=== PATIENT | female | born 1970 | race Caucasian/White ===

== ENCOUNTER 2020-03-14 08:33 | Emergency (ER) | payer SELFPAY ==
[2020-03-14 08:47] VITALS: BP 131/96; PULSE 71; RESP 17; TEMP 37; O2SAT 100; BMI 23.9
--- NOTE | 2020-03-14 08:55 | W.ED.SKABFB ---
HPI - Skin/Abscess/Foreign Bdy General: Chief complaint: Skin/Abscess/Foreign Body Stated complaint: RASH ON BREAST, PAINFUL Time Seen by Provider: 03/14/20 08:38 Source: patient Mode of arrival: ambulatory Limitations: no limitations History of Present Illness: HPI narrative: Patient is a 49-year-old female who presents to ED today with complaint of a rash to her breasts that she has noticed over the past 2 to 3 days. She describes a foul odor coming from the rash. She states the rash is pruritic and burning in nature. She has no other complaints at this time. complaint: rash Onset (ago): day(s) Tetanus up to date: yes Location: chest (breasts) Severity: mild Quality: burning and pruritic Pain Consistency: constant Relieving factors: none Exacerbating factors: none Context: none Associated symptoms: Reports no associated symptoms; Deny chills, fever(s), nausea or vomiting Treatments prior to arrival: none Review of Systems Const: Denies: fever or chills ENMT: Denies: throat pain, enlarged tonsils, painful swallowing or nasal congestion Card: Denies: chest pain Resp: Denies: shortness of breath GI: Denies: abdominal pain, nausea or vomiting Skin/Breast: Reports: rash Neuro: Denies: numbness in extremities, weakness in extremities or changes in sensation PFS ED PFSH: Social History Smoking and tobacco status: current every day smoker Physical Exam Const: COMMON NORMALS: no apparent distress, average body habitus, oriented x3, no limitations, healthy appearing, alert and well nourished Resp: COMMON NORMALS: normal respiratory effort and clear to auscultation bilaterally AUSCULTATION: clear to auscultation bilaterally Cardio: COMMON NORMALS: regular rate and regular rhythm RATE: regular rate RHYTHM: regular rhythm Neuro: COMMON NORMALS: oriented x3 SENSORIUM/ORIENTATION: Yes alert Skin: NARRATIVE SKIN EXAM: Patient has what appears to be a candidal rash to bilateral medial aspects of her breasts; rash seems to mirror each other most likely from the breast tissue touching while wearing a bra; has additional erythema/rash to left breast fold; no drainage or foul smell noted; no maceration Course Vital Signs: Vital signs: Vital Signs Temperature 98.6 F 03/14/20 08:47 Pulse Rate 71 03/14/20 08:47 Respiratory Rate 17 03/14/20 08:47 Blood Pressure 131/96 03/14/20 08:47 Pulse Oximetry 100 03/14/20 08:47 MDM - Skin/Abscess/Foreign Bdy MDM Narrative: Medical decision making narrative: Discussed hygiene for rash at home including keeping areas clean and dry. She can apply a cotton material or washcloth in her bra in between the breasts so they are not touching/chafing. Can apply barrier creams such as zinc oxide and we will place her on ketoconazole that she may use twice daily over the next 2 to 3 weeks. Discharge Plan Discharge Patient Disposition: Home, Self-Care Clinical Impression: Candidiasis of breast Condition: Stable Prescriptions: New ketoconazole 2 % cream 1 applic TOPICAL BID Qty: 30 RF: 0 Discharge Orders: Discharge Order (Routine); Ordered 03/14/20 Ordered By: Allie Redman Referrals: Mahi Myers MD [Primary Care Provider] - Discharge Diet: Usual diet Discharge Activity: Resume usual activity Activity Restrictions/Additional Instructions: As discussed keep area dry and moisture free. Allow area to air dry as much as possible. You may use a washcloth or other cotton material in your bra to help with moisture control/sweating. You may apply moisture barrier creams such as a baby butt paste/zinc oxide in addition to the antifungal medication prescribed to you today. Follow-up with primary care in 2 weeks for continued rash. Coding Level of Care Code ED Unit Assistant for Tayler Negro
== END 2020-03-14 09:03 | disposition home or self-care (01) ==
LOC: ER 03-15 00:56
PROVIDERS: Emergency Provider Physician Assistant; PCP Family Medicine
DX: B37.2 Candidiasis of skin and nail (principal); F17.210 Nicotine dependence, cigarettes, uncomplicated
CPT/HCPCS: 12345; 99281; 99282

== ENCOUNTER 2021-08-23 15:58 | Emergency (ER) | payer MEDICAID, SELFPAY ==
--- NOTE | 2021-08-23 16:23 | ECG_ITS ---
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 Measurements Intervals Burney Rate: 74 P: 53 NM: 152 QRS: 18 QRSD: 85 T: 57 QT: 380 QTc: 424 Interpretive Statements SINUS RHYTHM POSSIBLE RIGHT VENTRICULAR CONDUCTION DELAY [RSR (QR) IN V1/V2] MINIMAL ST DEPRESSION [0.025+ mV ST DEPRESSION] No previous ECG available for comparison Electronically Signed On 08-23-2021 21:00:16 CDT by Sadia Amaral M.D. [id number] f
[2021-08-23 16:34] VITALS: BP 165/84; PULSE 80; RESP 18; TEMP 37; O2SAT 100; BMI 23.6
[2021-08-23 17:07] VITALS: BP 147/111; PULSE 74; O2SAT 98
--- NOTE | 2021-08-23 17:07 | XRR_ITS ---
PROCEDURE INFORMATION: Exam: XR Chest Exam date and time: 08/23/2021 5:07 PM Age: 51 years old Clinical indication: Pain; Angina pectoris; Additional info: Chest pain TECHNIQUE: Imaging protocol: XR of the chest. Views: 1 view. Total images: 1 COMPARISON: CT abdomen pelvis w con* [id number] 01/14/2016 8:52 AM FINDINGS: Lungs: Unremarkable. No consolidation. Pleural spaces: Unremarkable. No pleural effusion. No pneumothorax. Heart/Mediastinum: Unremarkable. No cardiomegaly. Bones/joints: Unremarkable. XR/XR chest 1V portable [id number] IMPRESSION: No acute findings. Radiation Dose CTDIVOL = (mGy): DLP = (mGy-cm)
--- NOTE | 2021-08-23 17:08 | W.ED.CHESTPA ---
Documented by User: Osbaldo Aceves 08/23/21 17:42 HPI - Chest Pain General: Chief Complaint: Chest Pain Stated Complaint: CHEST PAINS/JAW PAIN/NAUSEA Time Seen by Provider: 08/23/21 16:53 Source: patient, family and old records reviewed Mode of arrival: ambulatory Limitations: no limitations History of Present Illness: HPI narrative: 51-year-old for episodes of bilateral jaw pressure which she is also been having her heart skipping a beat palpitation. Patient is reports has been worked up for heart previously with a last 5 years is come back unremarkable. She reports however this episode while moving some heavy groceries she developed bilateral jaw pain. Patient does not report any known cardiac surgeries reports no prior history of any car heart or lung issues besides arrhythmia. She is on no medications for this however that the pain concerned her in which she presented to the ER for further assessment patient currently reports she is chest pain-free and jaw pain-free. MD complaint: chest pain and chest discomfort Onset (ago): hour(s) (2) Timing of current episode: episodic and now resolved Prior episodes: Yes Onset: during rest, during exertion and after eating Pain location: left chest Quality: tightness and aching Risk Factors: Coronary artery disease risk factors: smoking history and hypertension Review of Systems General: Reports: 10 or more systems reviewed and unremarkable except in HPI and below Card: Reports: chest pain [facility] ED PFSH: Social History Smoking and tobacco status: current every day smoker Course Vital Signs: Vital signs: Vital Signs Temperature 98.6 F 08/23/21 16:34 Pulse Rate 69 08/23/21 19:31 Respiratory Rate 18 08/23/21 19:31 Blood Pressure 133/85 08/23/21 19:31 Pulse Oximetry 100 08/23/21 19:31 MDM - Chest Pain MDM Narrative: Medical decision making narrative: Patient symptom condition basic cardiac lives with him the patient will continue to follow currently she is asymptomatic anticipate probable discharge home pending her lab work and enzymes. Lab Data: Labs: Lab Results 08/23/21 08/23/21 08/23/21 17:17 17:17 17:17 WBC 8.7 10^3/uL 10^3/ uL (4.0-10.0) RBC 4.15 10^6/uL 10^6 /uL (4.1-5.3) Hgb 14.6 g/dL g/dL (11.5-15.3) Hct 43.4 % % (37.0-47.0) MCV 104.6 fl H fl (81-99) MCH 35.2 pg H pg (28.0-34.0) MCHC 33.6 g/dL g/dL (30.0-36.0) RDW 14.6 % % (12.1-15.1) Plt Count 258 10^3/cmm 10^3 /cmm (130-400) MPV 11.3 fL H fL (7.4-10.4) Neut % (Auto) 64.3 % % Lymph % (Auto) 29.7 % % Alexander % (Auto) 4.9 % % Eos % (Auto) 0.7 % % Baso % (Auto) 0.2 % % Neut # (Auto) 5.61 10^3/uL 10^3 /uL (1.8-7.7) Lymph # (Auto) 2.6 10^3/uL 10^3/ uL (0.8-4.8) Alexander # (Auto) 0.4 10^3/uL 10^3/ uL (0.2-0.9) Eos # (Auto) 0.1 10^3/uL 10^3/ uL (0.0-0.8) Baso # (Auto) 0.0 10^3/uL 10^3/ uL (0.0-0.1) Nucleated RBC % (a uto) 0 % % Nucleated RBCs # 0.0 /100WBC /100W BC Sodium 136 mmol/L mmol/L (136-145) Potassium 3.6 mmol/L mmol/L (3.5-5.1) Chloride 98 mmol/L mmol/L (98-107) Carbon Dioxide 25 mmol/L mmol/L (22-29) Anion Gap 16.6 (5-19) BUN 11 mg/dL mg/dL (6-20) Creatinine 0.6 mg/dL mg/dL (0.5-0.9) GFR Calculation 105.4 mL/min mL/m in (90-130) Glucose 90 mg/dL mg/dL (65-115) Calculated Osmolal ity 281 mOsm/kg L mOs m/kg (285-295) Calcium 9.7 mg/dL mg/dL (8.5-10.5) Total Bilirubin 0.5 mg/dL mg/dL (0.15-1.2) AST 16 U/L U/L (0-32) ALT 16 U/L U/L (0-33) Alkaline Phosphata se 102 IU/L IU/L (35-105) Troponin T Baselin e 24 ng/L H ng/L (0-10) Troponin T 120 Min [place] Troponin T NT-Pro-B Natriuret Pep 46 pg/mL pg/mL (0-125) Total Protein 8.1 g/dL g/dL (6.6-8.7) Albumin 4.6 g/dL g/dL (3.5-5.2) Globulin 3.5 g/dL g/dL (1.3-4.6) Urine Color Urine Appearance Urine pH Ur Specific Gravit y Urine Protein Urine Glucose (UA) Urine Ketones Urine Blood Urine Nitrate Urine Bilirubin Urine Urobilinogen Ur Leukocyte Melanie ase Urine RBC Urine WBC Ur Squamous Epith Cells Amorphous Sediment Urine Bacteria Urine Mucus Urine Opiates Scre en Ur Barbiturates Sc reen Ur Phencyclidine S crn Ur Amphetamines Sc reen U Benzodiazepines Scrn Urine Cocaine Scre en U Marijuana (THC) Screen 08/23/21 08/23/21 08/23/21 17:44 17:44 19:15 WBC RBC Hgb Hct MCV MCH MCHC RDW Plt Count MPV Neut % (Auto) Lymph % (Auto) Alexander % (Auto) Eos % (Auto) Baso % (Auto) Neut # (Auto) Lymph # (Auto) Alexander # (Auto) Eos # (Auto) Baso # (Auto) Nucleated RBC % (a uto) Nucleated RBCs # Sodium Potassium Chloride Carbon Dioxide Anion Gap BUN Creatinine GFR Calculation Glucose Calculated Osmolal ity Calcium Total Bilirubin AST ALT Alkaline Phosphata se Troponin T Baselin e Troponin T 120 Min [place] 31.50 ng/L H ng/L (0-10) [place] Troponin T 7.50 ABS# ABS# (0-10) NT-Pro-B Natriuret Pep Total Protein Albumin Globulin Urine Color Yellow (Yellow) Urine Appearance Hazy A (CLEAR) Urine pH 5 (5-7) Ur Specific Gravit y 1.020 (1.005-1.030) Urine Protein Neg (Negative) Urine Glucose (UA) Norm (Normal) Urine Ketones 1+ H (Negative) Urine Blood Trace H (Negative) Urine Nitrate Negative (Negative) Urine Bilirubin 1+ H (Negative) Urine Urobilinogen 4 mg/dL H mg/dL (Negative) Ur Leukocyte Melanie ase Negative (Negative) Urine RBC 0-4 /hpf H /hpf (0-2) Urine WBC 0-4 /hpf H /hpf (0-5) Ur Squamous Epith Cells 15-25 /hpf H /hpf (0-5) Amorphous Sediment Not Reportable Urine Bacteria 1+ /hpf H /hpf (NONE) Urine Mucus 2+ /hpf /hpf Urine Opiates Scre en Negative ng/mL ng /mL (Negative) Ur Barbiturates Sc reen Negative ng/mL ng /mL (Negative) Ur Phencyclidine S crn Negative ng/mL ng /mL (Negative) Ur Amphetamines Sc reen Negative ng/mL ng /mL (Negative) U Benzodiazepines Scrn Negative ng/mL ng /mL (Negative) Urine Cocaine Scre en Negative ng/mL ng /mL (Negative) U Marijuana (THC) Screen Positive ng/mL H ng/mL (Negative) Discharge Plan Discharge Patient Disposition: Home Clinical Impression: Chest pain Qualifiers: Chest pain type: unspecified Qualified Code(s): R07.9 - Chest pain, unspecified Condition: Stable Prescriptions: No Action No Known Home Medications RF: 0 Discharge Orders: Discharge ED (Routine); Ordered 08/23/21 Ordered By: Felipe Dumas Referrals: Mahi Myers MD [Primary Care Provider] - 1-3 days Discharge Diet: Advance as tolerated Discharge Activity: Resume usual activity Patient Instructions: Chest Pain (ED) Coding Level of Care Code ED Proofer Prepress for Chg Fwd Documented by User: Felipe Dumas MD 08/23/21 20:10 HPI - Chest Pain General: Chief Complaint: Chest Pain Stated Complaint: CHEST PAINS/JAW PAIN/NAUSEA Time Seen by Provider: 08/23/21 16:53 PFSH ED PFSH: Social History Smoking and tobacco status: current every day smoker Physical Exam Const: COMMON NORMALS: no acute distress, patient oriented x3 and healthy appearing HENMT: COMMON NORMALS: normocephalic and atraumatic HEAD & SCALP: normocephalic and atraumatic Eye: COMMON NORMALS: Equal, round and reactive pupils present and EOMs intact bilaterally PUPIL: Yes Equal, round and reactive pupils present Neck/C-Spine: COMMON NORMALS: full ROM and supple Chest: COMMONS NORMALS: normal inspection of the chest and normal palpation of entire chest wall Resp: COMMON NORMALS: normal respiratory effort, No retractions, No use of accessory muscles and clear to auscultation bilaterally AUSCULTATION: clear to auscultation bilaterally Cardio: COMMON NORMALS: regular rate, regular rhythm and No murmurs present (Cardio) RATE: regular rate RHYTHM: regular rhythm GI: COMMON NORMALS: Normal to inspection, nondistended, normoactive bowel sounds present, Soft to palpation, non-tender and no masses PALPATION: Yes Soft to palpation Extremity: COMMON NORMALS: normal to inspection and full ROM Neuro: COMMON NORMALS: patient oriented x3, moves all extremities and no focal motor deficits Psych: COMMON NORMALS: mental status grossly normal, Normal thought process present and cooperative THOUGHT PROCESS: Normal thought process present Skin: COMMON NORMALS: no rashes or lesions noted and no wounds GENERAL SKIN EXAM: no rashes or lesions noted Course Vital Signs: Vital signs: Vital Signs Temperature 98.6 F 08/23/21 16:34 Pulse Rate 69 08/23/21 19:31 Respiratory Rate 18 08/23/21 19:31 Blood Pressure 133/85 08/23/21 19:31 Pulse Oximetry 100 08/23/21 19:31 MDM - Chest Pain MDM Narrative: Medical decision making narrative: Patient presents here with chest pain. Her pain is since resolved EKG and troponins here are negative. She is to follow-up with PCP and is return if worsening. She has no signs of pulmonary embolism or aortic dissection. She understands agrees to plan. Lab Data: Labs: Lab Results 08/23/21 08/23/21 08/23/21 17:17 17:17 17:17 WBC 8.7 10^3/uL 10^3/ uL (4.0-10.0) RBC 4.15 10^6/uL 10^6 /uL (4.1-5.3) Hgb 14.6 g/dL g/dL (11.5-15.3) Hct 43.4 % % (37.0-47.0) MCV 104.6 fl H fl (81-99) MCH 35.2 pg H pg (28.0-34.0) MCHC 33.6 g/dL g/dL (30.0-36.0) RDW 14.6 % % (12.1-15.1) Plt Count 258 10^3/cmm 10^3 /cmm (130-400) MPV 11.3 fL H fL (7.4-10.4) Neut % (Auto) 64.3 % % Lymph % (Auto) 29.7 % % Alexander % (Auto) 4.9 % % Eos % (Auto) 0.7 % % Baso % (Auto) 0.2 % % Neut # (Auto) 5.61 10^3/uL 10^3 /uL (1.8-7.7) Lymph # (Auto) 2.6 10^3/uL 10^3/ uL (0.8-4.8) Alexander # (Auto) 0.4 10^3/uL 10^3/ uL (0.2-0.9) Eos # (Auto) 0.1 10^3/uL 10^3/ uL (0.0-0.8) Baso # (Auto) 0.0 10^3/uL 10^3/ uL (0.0-0.1) Nucleated RBC % (a uto) 0 % % Nucleated RBCs # 0.0 /100WBC /100W BC Sodium 136 mmol/L mmol/L (136-145) Potassium 3.6 mmol/L mmol/L (3.5-5.1) Chloride 98 mmol/L mmol/L (98-107) Carbon Dioxide 25 mmol/L mmol/L (22-29) Anion Gap 16.6 (5-19) BUN 11 mg/dL mg/dL (6-20) Creatinine 0.6 mg/dL mg/dL (0.5-0.9) GFR Calculation 105.4 mL/min mL/m in (90-130) Glucose 90 mg/dL mg/dL (65-115) Calculated Osmolal ity 281 mOsm/kg L mOs m/kg (285-295) Calcium 9.7 mg/dL mg/dL (8.5-10.5) Total Bilirubin 0.5 mg/dL mg/dL (0.15-1.2) AST 16 U/L U/L (0-32) ALT 16 U/L U/L (0-33) Alkaline Phosphata se 102 IU/L IU/L (35-105) Troponin T Baselin e 24 ng/L H ng/L (0-10) Troponin T 120 Min [place] Troponin T NT-Pro-B Natriuret Pep 46 pg/mL pg/mL (0-125) Total Protein 8.1 g/dL g/dL (6.6-8.7) Albumin 4.6 g/dL g/dL (3.5-5.2) Globulin 3.5 g/dL g/dL (1.3-4.6) Urine Color Urine Appearance Urine pH Ur Specific Gravit y Urine Protein Urine Glucose (UA) Urine Ketones Urine Blood Urine Nitrate Urine Bilirubin Urine Urobilinogen Ur Leukocyte Melanie ase Urine RBC Urine WBC Ur Squamous Epith Cells Amorphous Sediment Urine Bacteria Urine Mucus Urine Opiates Scre en Ur Barbiturates Sc reen Ur Phencyclidine S crn Ur Amphetamines Sc reen U Benzodiazepines Scrn Urine Cocaine Scre en U Marijuana (THC) Screen 08/23/21 08/23/21 08/23/21 17:44 17:44 19:15 WBC RBC Hgb Hct MCV MCH MCHC RDW Plt Count MPV Neut % (Auto) Lymph % (Auto) Alexander % (Auto) Eos % (Auto) Baso % (Auto) Neut # (Auto) Lymph # (Auto) Alexander # (Auto) Eos # (Auto) Baso # (Auto) Nucleated RBC % (a uto) Nucleated RBCs # Sodium Potassium Chloride Carbon Dioxide Anion Gap BUN Creatinine GFR Calculation Glucose Calculated Osmolal ity Calcium Total Bilirubin AST ALT Alkaline Phosphata se Troponin T Baselin e Troponin T 120 Min [place] 31.50 ng/L H ng/L (0-10) [place] Troponin T 7.50 ABS# ABS# (0-10) NT-Pro-B Natriuret Pep Total Protein Albumin Globulin Urine Color Yellow (Yellow) Urine Appearance Hazy A (CLEAR) Urine pH 5 (5-7) Ur Specific Gravit y 1.020 (1.005-1.030) Urine Protein Neg (Negative) Urine Glucose (UA) Norm (Normal) Urine Ketones 1+ H (Negative) Urine Blood Trace H (Negative) Urine Nitrate Negative (Negative) Urine Bilirubin 1+ H (Negative) Urine Urobilinogen 4 mg/dL H mg/dL (Negative) Ur Leukocyte Melanie ase Negative (Negative) Urine RBC 0-4 /hpf H /hpf (0-2) Urine WBC 0-4 /hpf H /hpf (0-5) Ur Squamous Epith Cells 15-25 /hpf H /hpf (0-5) Amorphous Sediment Not Reportable Urine Bacteria 1+ /hpf H /hpf (NONE) Urine Mucus 2+ /hpf /hpf Urine Opiates Scre en Negative ng/mL ng /mL (Negative) Ur Barbiturates Sc reen Negative ng/mL ng /mL (Negative) Ur Phencyclidine S crn Negative ng/mL ng /mL (Negative) Ur Amphetamines Sc reen Negative ng/mL ng /mL (Negative) U Benzodiazepines Scrn Negative ng/mL ng /mL (Negative) Urine Cocaine Scre en Negative ng/mL ng /mL (Negative) U Marijuana (THC) Screen Positive ng/mL H ng/mL (Negative) Discharge Plan Discharge Patient Disposition: Home Clinical Impression: Chest pain Qualifiers: Chest pain type: unspecified Qualified Code(s): R07.9 - Chest pain, unspecified Condition: Stable Prescriptions: No Action No Known Home Medications RF: 0 Discharge Orders: Discharge ED (Routine); Ordered 08/23/21 Ordered By: Felipe Dumas Referrals: Mahi Myers MD [Primary Care Provider] - 1-3 days Discharge Diet: Advance as tolerated Discharge Activity: Resume usual activity Patient Instructions: Chest Pain (ED) Coding Level of Care Code ED Proofer Prepress for Tayler Negro
[2021-08-23 17:43] LABS: Basophils % 0.2 %; Eosinophils # 0.1 10^3/uL (0.0-0.8); Eosinophils % 0.7 %; Hematocrit 43.4 % (37.0-47.0); Hemoglobin 14.6 g/dL (11.5-15.3); Lymphocytes # 2.6 10^3/uL (0.8-4.8); Lymphocytes % 29.7 %; Mean Corpuscular HGB Conc 33.6 g/dL (30.0-36.0); Mean Corpuscular Hemoglobin 35.2 pg (28.0-34.0); Mean Corpuscular Volume 104.6 fl (81-99); Mean Platelet Volume 11.3 fL (7.4-10.4); Monocytes # 0.4 10^3/uL (0.2-0.9); Monocytes % 4.9 %; Neutrophils # 5.61 10^3/uL (1.8-7.7); Neutrophils % 64.3 %; Nucleated Red Blood Cells % 0 %; Platelet Count 258 10^3/cmm (130-400); Red Blood Count 4.15 10^6/uL (4.1-5.3); Red Cell Distribution Width 14.6 % (12.1-15.1); White Blood Count 8.7 10^3/uL (4.0-10.0)
[2021-08-23] MEDS: sodium chloride 0.9% 500 ML 999 ML IV (17:46)
[2021-08-23 18:11] LABS: Troponin(5th) Baseline 24 ng/L (0-10)
[2021-08-23 18:18] LABS: Alanine Aminotransferase 16 U/L (0-33); Albumin Level 4.6 g/dL (3.5-5.2); Alkaline Phosphatase 102 IU/L (35-105); Anion Gap 16.6 (5-19); Aspartate Amino Transferase 16 U/L (0-32); Blood Urea Nitrogen 11 mg/dL (6-20); Calcium 9.7 mg/dL (8.5-10.5); Carbon Dioxide 25 mmol/L (22-29); Chloride 98 mmol/L (98-107); Globulin 3.5 g/dL (1.3-4.6); Glomerular Filtration Rate 105.4 mL/min (90-130); Glucose 90 mg/dL (65-115); NT Pro B Type Natriuretic Pept 46 pg/mL (0-125); Osmolality Calculated 281 mOsm/kg (285-295); Potassium 3.6 mmol/L (3.5-5.1); Sodium 136 mmol/L (136-145); Total Bilirubin 0.5 mg/dL (0.15-1.2); Total Protein 8.1 g/dL (6.6-8.7)
[2021-08-23 18:19] LABS: Bilirubin Urine 1+ (Negative); Blood Urine Trace (Negative); Glucose Urine UA Norm (Normal); Ketones Urine 1+ (Negative); Nitrate Urine Negative (Negative); Protein Urine Neg (Negative); Urine Appearance Hazy (CLEAR); Urine Color Yellow (Yellow); Urobilinogen Urine 4 mg/dL (Negative); pH Urine 5 (5-7)
[2021-08-23 18:20] LABS: Add Urine Microscopic? YES; Leukocyte Esterase Urine Negative (Negative)
[2021-08-23 18:23] LABS: RBC Urine 0-4 /hpf (0-2); Squamous Epithelial Cell Urine 15-25 /hpf (0-5); WBC Urine 0-4 /hpf (0-5)
[2021-08-23 18:24] LABS: Add Urine Culture? No; Bacteria Urine 1+ /hpf; Mucus Urine 2+ /hpf
[2021-08-23 18:28] LABS: Amphetamines Screen Urine Negative (Negative); Barbiturates Screen Urine Negative (Negative); Benzodiazepines Screen Urine Negative (Negative); Cocaine Screen Urine Negative (Negative); Opiate Screen Urine Negative (Negative); PCP Screen Urine Negative (Negative); THC Screen Urine Positive (Negative)
[2021-08-23 19:31] VITALS: BP 133/85; PULSE 69; RESP 18; O2SAT 100
[2021-08-23 20:16] VITALS: BP 133/85; PULSE 69; RESP 18; O2SAT 100
== END 2021-08-23 20:10 | disposition home or self-care (01) ==
PROVIDERS: Emergency Medicine; Nurse Practitioner Family; Emergency Provider Emergency Medicine; PCP Family Medicine
DX: R07.9 Chest pain, unspecified (principal); F17.210 Nicotine dependence, cigarettes, uncomplicated
CPT/HCPCS: 71045; 80053; 80306; 81001; 83880; 84484; 85025; 93005; 99283; J7040

== ENCOUNTER 2021-10-28 11:37 | Outpatient (CLI) | payer MEDICAID, SELFPAY ==
[2021-10-28 11:53] VITALS: BMI 22.6
--- NOTE | 2021-10-28 12:15 | ECG_ITS ---
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 Interpretive Statements NAME OF STUDY: TREADMILL STRESS TEST INDICATION: [Chest Pain, ] EXERCISE DATA: The patient was exercised by Greg protocol. Baseline heart rate was 70 beats per minute. Baseline blood pressure was 79 millimeters of mercury. Target heart rate was 143 beats per minute. Maximum heart rate achieved was 149, which was 104% of the target heart rate. Maximum blood pressure was 142/51 millimeters of mercury. Total exercise time was 9 minutes 27 seconds. Maximum METs achieved was 13.5, maximum VO2 was 47.3. The reason for ending the test was completion of protocol. The patient complained of shortness of breath during the stress test, which then resolved at the end of the test. ELECTROCARDIOGRAM: BASELINE: Showed sinus rhythm, incomplete right bundle branch block,, no significant ST-T changes at the baseline noted. [] EXERCISE: At the peak exercise level, [] No significant ST-T changes suggestive of ischemia noted. [] RECOVERY: During the recovery period, heart rate dropped appropriately. No significant ST-T changes in the recovery suggestive of ischemia noted. In recovery phase patient had frequent PVCs in bigeminal pattern. [] CONCLUSION: 1. Exercise capacity excellent. 2. Heart rate response was appropriate 3. Blood pressure response was appropriate 4. Symptoms not suggestive of ischemia. 5. Stress test negative for ischemia Electronically Signed On 10-31-2021 13:14:06 INDUSTRIAL PHARMACIST by Jerman Ramos M.D. [id number]
[2021-10-28 12:30] VITALS: BP 108/94; PULSE 91
== END 2021-10-28 11:38 | disposition home or self-care (01) ==
LOC: CDL 11:40
PROVIDERS: PCP Family Medicine; Visit Provider Family Medicine
DX: R07.9 Chest pain, unspecified (principal); R06.02 Shortness of breath
CPT/HCPCS: 93017

== ENCOUNTER → 2022-10-04 12:11 | Outpatient (BNVA) | payer MEDICAID, SELFPAY | PROVIDERS: PCP Family Medicine; Visit Provider Clinical Nurse Specialist Adult Health | DX: B34.9 Viral infection, unspecified (principal); J10.1 Influenza due to other identified influenza virus with other respiratory manifestations; Z12.11 Encounter for screening for malignant neoplasm of colon | CPT/HCPCS: 87400; 87426 ==

== ENCOUNTER 2022-10-14 06:50 | Outpatient (CLI) | payer MEDICAID, SELFPAY ==
--- NOTE | 2022-10-14 | US_ITS ---
WS: [id number] Complete ABDOMINAL ULTRASOUND HISTORY: left upper quadrant and flank pain COMPARISON: 04/24/2012 Liver: 14.2 cm in length. Liver is normal size and echogenicity with no mass or intrahepatic dilatati on. Portal Vein: Abnormal flow but this is probably due to the orientation of the sample volume to the po rtal vein and not accurate. Nondiagnostic evaluation of the portal vein. Gallbladder: Normally distended with no gallstones, wall thickening or pericholecystic fluid. Pancreas: Normal size and echogenicity. CBD: 0.4 cm. Right kidney: 9.2 cm x 4.6 cm x 3.9 cm. No mass, cortical thickening or hydronephrosis. Left kidney: 9.8 cm x 4.5 cm x 5.0 cm. No mass, cortical thickening or hydronephrosis. Spleen: Normal size and echogenicity. Abdominal aorta and IVC are within normal limits. No ascites. US/US abdomen complete* [id number] IMPRESSION: Normal complete abdomen ultrasound.
== END 2022-10-14 06:51 | disposition home or self-care (01) ==
LOC: RAD 06:52
PROVIDERS: PCP Family Medicine; Visit Provider Family Medicine
DX: R10.12 Left upper quadrant pain (principal); Z87.442 Personal history of urinary calculi
CPT/HCPCS: 76700

== ENCOUNTER 2022-12-09 06:37 | Emergency (ER) | payer MEDICAID, SELFPAY ==
[2022-12-09 06:41] VITALS: BP 116/63; PULSE 79; RESP 18; TEMP 36.5; O2SAT 99; BMI 21.3
[2022-12-09 06:45] VITALS: BP 122/78; RESP 14
--- NOTE | 2022-12-09 06:54 | XR_ITS ---
WS: [id number] Left foot, 3 views, 12/09/2022 Clinical Data: pain Comparison: None. Findings: No fractures or dislocations are seen. No bone destruction or erosion is noted. The joint spaces and soft tissues are normal. XR/XR foot LT min 3V* [id number] Impression: Negative left foot.
--- NOTE | 2022-12-09 06:54 | XR_ITS ---
WS: [id number] Right foot, 3 views, 12/09/2022 Clinical Data: pain Comparison: None. Findings: No fractures or dislocations are seen. No bone destruction or erosion is noted. The joint spaces and soft tissues are normal. XR/XR foot RT min 3V* [id number] Impression: Negative right foot.
--- NOTE | 2022-12-09 06:56 | ED_ITS ---
HPI - Extremity Problem General: Chief complaint: Extremity Problem,Nontraumatic Stated complaint: feet pain Time Seen by Provider: 12/09/22 06:41 Source: patient Mode of arrival: ambulatory History of Present Illness: 52-year-old female presents emergency room with complaint of bilateral foot pain. She has had it for over a months she is seen in urgent care they advised her to get new shoes and inserts with better arch supports she has been taking ibuprofen he states not really helped much is worse when she first get up some morning and then will improve slightly as she is on her feet. But if she sits for short period time and stands back up it will hurt sharply again. MD Complaint: extremity pain Onset (ago): month(s) Pain Consistency: intermittent Location: left, right and other (Feet bilaterally) Quality: stabbing and sharp Relieving factors: nothing Exacerbating factors: nothing Associated symptoms: Deny chest pain, fever(s) or rash Review of Systems Const: Denies: fever(s), chills, body aches, change in appetite, fatigue or malaise Card: Denies: chest pain, edema, dyspnea on exertion or orthopnea Resp: Denies: dyspnea, productive cough or non-productive cough Skin/Breast: Denies: rash or pruritus PFSH ED PFSH: Medical History Anxiety about health Anxiety disorder Asthmatic bronchitis Syncope with abnormal neurologic examination Family History Other Hyperlipidemia Hypertension Social History Smoking and tobacco status: never smoked Alcohol intake: current Alcohol intake frequency: holidays/special occasions only Physical Exam Const: COMMON NORMALS: no acute distress GENERAL APPEARANCE: cooperative and comfortable ORIENTATION/CONSCIOUSNESS: Yes awake, Yes oriented to person, Yes oriented to place and Yes oriented to time HENMT: COMMON NORMALS: normocephalic, atraumatic and hearing grossly normal bilaterally HEAD & SCALP: normocephalic and atraumatic Extremity: COMMON NORMALS: normal to inspection, capillary refill normal, no clubbing, cyanosis or edema, no calf tenderness and no pedal edema OTHER: Examination of the feet bilaterally. Mild pain with palpation of the plantar aspect of the anterior calcaneus. No significant deformity no laceration no swelling no ecchymosis. Nix pedis posterior tibialis pulses bilaterally are normal. Sensation normal dorsum plantar flex strength 5 of 5 Achilles tendon intact no edema negative Homans Neuro: SENSORIUM/ORIENTATION: Yes oriented to person, Yes oriented to place and Yes oriented to time Skin: COMMON NORMALS: no rashes or lesions noted GENERAL SKIN EXAM: no rashes or lesions noted Course Vital Signs: Vital signs: Vital Signs Temperature 97.7 F 12/09/22 06:41 Pulse Rate 79 12/09/22 06:41 Respiratory Rate 14 12/09/22 06:45 Blood Pressure 122/78 12/09/22 06:45 Pulse Oximetry 99 12/09/22 06:41 Oxygen Delivery Me thod 12/09/22 06:45 MDM - Extremity (Nontraumatic) Medical Decision Making No evidence of fracture or deformity no history of trauma. Achilles tendon is intact palpable pulses. Does not appear to be a vascular issue or an acute fr acture. On x-ray there is no evidence of fracture. Will discharge home with anti-inflammatories and make arrangements for follow-up to podiatry. Medical Records I reviewed the patient's medical records. Lab Data I reviewed the patient's lab results. Radiology Impressions Foot X-Ray 12/09/22 06:54 Impression: Negative left foot. Discharge Plan Discharge Patient Disposition: Home Clinical Impression: Bilateral plantar fasciitis Condition: Stable Prescriptions: New diclofenac sodium 75 mg tablet,delayed release (DR/EC) 75 mg PO Q12H PRN (Reason: pain) Qty: 20 0RF Discharge Orders: Discharge ED (Routine); Ordered 12/09/22 Ordered By: Daniel Agustin Referrals: Mahi Myers MD [Primary Care Provider] - Discharge Diet: Usual diet Discharge Activity: Increase activity as tolerated Patient Instructions: Opioid Safety, Pain Management Activity Restrictions/Additional Instructions: You are seen today for bilateral foot pain. X-rays were unremarkable. Based on history given regarding the pain in your feet suspect you have planter fasciitis. agricultural labor camp manager will make arrangements for you to follow-up with podiatry. You are given a prescription for diclofenac to use 1 every 12 hours as needed. Coding Level of Care Code ED Cad Manager for Chg Fwd Exam Expanded Problem Focused
--- NOTE | 2022-12-09 10:17 | DCPLANNER ---
Addendum entered by Nicole Phillips 01/19/23 07:26: Patient had follow up appointment with ortho - patient did attend appointment. Addendum entered by Nicole Phillips 12/09/22 15:48: Patient has a follow up appointment scheduled for Tuesday, December 27, 2022 at 9:[address] Jimenez at ortho. Clinic will call patient with appointment information. Original Note: build and release manager had message to schedule a follow up appointment for patient with podiatry. build and release manager sent patients information to the front office staff at podiatry. Patients information will be printed and reviewed. Clinic will call patient with appointment information.
== END 2022-12-09 07:22 | disposition home or self-care (01) ==
PROVIDERS: Emergency Provider Family Medicine; PCP Family Medicine
DX: M72.2 Plantar fascial fibromatosis (principal); M79.672 Pain in left foot; M79.671 Pain in right foot
CPT/HCPCS: 73630; 99283

== ENCOUNTER → 2023-02-12 13:55 | Outpatient (BNVA) | payer MEDICAID, SELFPAY | PROVIDERS: PCP Family Medicine; Visit Provider Nurse Practitioner Family | DX: R05.9 Cough, unspecified (principal); U07.1 COVID-19 | CPT/HCPCS: 87400; 87426 ==

== ENCOUNTER 2023-05-01 11:38 | Emergency (ER) | payer MEDICAID, SELFPAY ==
--- NOTE | 2023-05-01 12:16 | XRR_ITS ---
PROCEDURE INFORMATION: Exam: XR Right Ribs with PA Chest Exam date and time: 05/01/2023 12:46 PM Age: 52 years old Clinical indication: Injury or trauma; Fall; Rib area; Blunt trauma (contusions or hematomas); Additional info: Fall, continued pain since fall Tuesday TECHNIQUE: Imaging protocol: Radiologic exam of the right ribs with PA chest. Views: 3 views COMPARISON: CR XR chest 1V portable [id number] 08/23/2021 5:40 PM FINDINGS: Lungs: Unremarkable. No consolidation. Pleural spaces: Unremarkable. No pleural effusion. No pneumothorax. Heart/Mediastinum: Unremarkable. No cardiomegaly. Bones/joints: Unremarkable. XR/XR ribs RT mn 3V w CXR1V [id number] IMPRESSION: No acute findings.
--- NOTE | 2023-05-01 12:55 | PC.NURSE ---
assumed care - patient states she was leaning over and hurt right ribs at 0100- this morning she felt a pop and pain continues
[2023-05-01 13:57] VITALS: TEMP 36.7
--- NOTE | 2023-05-01 21:23 | ED_ITS ---
HPI - General Adult General: Chief complaint: General Medical Stated complaint: Right side rib pain Time Seen by Provider: 05/01/23 13:01 Source: patient Mode of arrival: ambulatory Limitations: no limitations History of Present Illness: Patient presents to the emergency department today for evaluation treatment of right anterior rib pain. 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 She states that she was trying to hold herself up on her armrest when her arm slipped, causing her to fall and impact her right anterior ribs on the armrest. She states it knocked the wind out of her and she has had pain with deep breathing and certain range of motion since that time. She states she has had rib injuries in the past and just wanted to know if they were fractured. She states she has been taking some [id number] pain medication but, typically prefers to not take anything. Review of Systems General: Reports: 10 or more systems reviewed and unremarkable except in HPI and below PFSH ED PFSH: Medical History Anxiety about health Anxiety disorder Asthmatic bronchitis Syncope with abnormal neurologic examination Family History Other Hyperlipidemia Hypertension Social History Smoking and tobacco status: never smoked Alcohol intake: current Alcohol intake frequency: holidays/special occasions only Physical Exam Const: COMMON NORMALS: no acute distress, patient oriented x3, healthy appearing and alert HENMT: COMMON NORMALS: normocephalic, atraumatic, hearing grossly normal bilaterally, Normal external nose present and moist oral mucous membranes HEAD & SCALP: normocephalic and atraumatic NOSE: Normal external nose present Eye: COMMON NORMALS: Equal, round and reactive pupils present, EOMs intact bilaterally and conjunctivae normal CONJUNCTIVA: Yes conjunctivae normal PUPIL: Yes Equal, round and reactive pupils present Neck/C-Spine: COMMON NORMALS: full ROM, no meningeal signs and no JVD Lymph: LYMPHATIC: no lymphadenopathy noted Chest: OTHER: No signs of bruising to the right anterior chest. Patient is tender to palpation to the right inferior anterior and somewhat medial portions of the ribs. Pain is reproducible on palpation. Resp: COMMON NORMALS: normal respiratory effort, No retractions and No use of accessory muscles Cardio: COMMON NORMALS: no JVD, regular rate and Peripheral pulses 2+ throughout RATE: regular rate PERIPHERAL PULSES: Peripheral pulses 2+ throughout : COMMON NORMALS: Yes no CVA tenderness BLADDER/KIDNEY EXAM: Yes no CVA tenderness Back/Pelvis: COMMON NORMALS: no CVA tenderness, thoraco-lumbar ROM normal and straight leg raise negative bilaterally Extremity: COMMON NORMALS: normal to inspection, full ROM, no joint enlargement and no calf tenderness GENERAL: Yes normal exam except as noted Neuro: COMMON NORMALS: patient oriented x3, CN's II-XII intact bilaterally, moves all extremities, no focal motor deficits and no sensory deficits noted SENSORIUM/ORIENTATION: Yes alert MENINGEAL SIGNS: Yes no meningeal signs Course Vital Signs: Vital signs: Vital Signs Temperature 98.0 F 05/01/23 13:57 MDM - General Adult Medical Decision Making Chest x-ray was read negative for signs of any rib fractures. Discussed this with the patient who indicated her satisfaction and stated she will continue to take care of it at home. We did discuss options for pain control however, patient reports she does not want medication at this time. We went over return precautions for which she needs to be seen and reevaluated. Patient verbalized understanding and agreement to the treatment plan. Differential Diagnosis Rib fracture, rib contusion, pulmonary contusion, spontaneous pneumo, intercostal muscle strain Lab Data Radiology Impressions Ribs X-Ray 05/01/23 12:16 IMPRESSION: No acute findings. Discharge Plan Discharge Patient Disposition: Home Clinical Impression: Contusion of rib on right side Condition: Stable Prescriptions: No Action Paxlovid (EUA) 300 mg (150 mg x 2)-100 mg tablets,dose pack See Rx Instructions PO .COMPLEX Qty: 30 0RF Rx Instructions: take TWO 150 mg tablets of nirmatrelvir with ONE 100 mg tablet of ritonavir twice daily for 5 days PO Discharge Orders: Discharge ED (Routine); Ordered 05/01/23 Ordered By: Emma Farias Referrals: Mahi Myers MD [Primary Care Provider] - Discharge Diet: Usual diet Discharge Activity: Increase activity as tolerated Patient Instructions: Rib Contusion (ED) Activity Restrictions/Additional Instructions: The radiologist today indicated he found no signs of fractures to your ribs however, given the location of your discomfort I do think you could have injured or bruised the cartilaginous connection between your lower ribs and the attachment cartilage to your lower sternum. This can still be tender and sore for even a couple of weeks. You can apply ice or heat as is comfortable. Use Tylenol and ibuprofen if needed. If for any reason you develop cough or fever he should be seen and reevaluated. Coding Level of Care Code ED J2Ee Architect for Tayler Negro
== END 2023-05-01 13:58 | disposition home or self-care (01) ==
PROVIDERS: Emergency Provider Physician Assistant; PCP Family Medicine
DX: S20.211A Contusion of right front wall of thorax, initial encounter (principal); W22.09XA Striking against other stationary object, initial encounter
CPT/HCPCS: 71101; 99283

== ENCOUNTER → 2023-07-26 11:29 | Outpatient (BNVA) | payer MEDICAID, SELFPAY | PROVIDERS: PCP Family Medicine; Visit Provider Family Medicine | DX: E05.90 Thyrotoxicosis, unspecified without thyrotoxic crisis or storm (principal); F41.1 Generalized anxiety disorder | CPT/HCPCS: 80053; 84439; 84443; 85025 ==

== ENCOUNTER → 2023-07-27 15:24 | Outpatient (BNVA) | payer MEDICAID, SELFPAY | PROVIDERS: PCP Family Medicine; Visit Provider Family Medicine | DX: E05.90 Thyrotoxicosis, unspecified without thyrotoxic crisis or storm (principal); F41.1 Generalized anxiety disorder; D75.89 Other specified diseases of blood and blood-forming organs | CPT/HCPCS: 82607 ==

== ENCOUNTER 2024-07-14 10:07 | Emergency (ER) | payer MEDICAID, SELFPAY ==
[2024-07-14 10:34] VITALS: BP 113/76; PULSE 83; RESP 16; TEMP 36.8; O2SAT 99; BMI 22.6
[2024-07-14 11:11] LABS: Basophils % 0.2 %; Eosinophils # 0.1 10^3/uL (0.0-0.8); Eosinophils % 1.2 %; Hematocrit 41.1 % (36-47); Lymphocytes # 2.3 10^3/uL (0.8-4.8); Lymphocytes % 28.6 %; Mean Corpuscular HGB Conc 33.1 g/dL (30-55); Mean Corpuscular Hemoglobin 31.4 pg (27-33); Mean Corpuscular Volume 94.9 fl (85-98); Mean Platelet Volume 10.5 fL (7.4-10.4); Monocytes # 0.4 10^3/uL (0.2-0.9); Monocytes % 4.4 %; Neutrophils # 5.28 10^3/uL (1.8-7.7); Neutrophils % 65.4 %; Nucleated Red Blood Cells % 0 %; Platelet Count 250 10^3/cmm (157-399); Red Blood Count 4.33 10^6/uL (3.85-5.65); Red Cell Distribution Width 12.6 % (12.1-15.1); White Blood Count 8.09 10^3/uL (3.29-11.43)
[2024-07-14 11:24] LABS: HCG, Serum Qual Negative (Negative)
--- NOTE | 2024-07-14 11:25 | ED_ITS ---
HPI - Abdominal Pain 2 General: Chief Complaint: Abdominal Pain Stated Complaint: abd pain/NVD Time Seen by Provider: 07/14/24 10:50 History of Present Illness: 53-year-old female presents emergency ro om complaining of chills myalgias diarrhea nonproductive cough. Symptoms began yesterday. Subjective fever. No dysuria urgency or frequency. No vomiting. No hematochezia melena hematemesis coffee-ground emesis. Patient relates symptoms are similar to what she experienced when she previously had COVID Associated Symptoms: Reports bloating, GI cramping, diarrhea, fever(s) and nausea; Denies chills and dysuria Related Data Previous Rx's Medication Instructions Recorded mecobalamin (vitamin B12) 10,000 1,000 mcg IM .weekly #1 ea 07/28/23 mcg solution for injection polyethylene glycol 3350 17 4 g PO DAILY #510 grams 06/04/24 gram/dose oral powder (Miralax) ondansetron HCl 4 mg tablet 4 mg PO Q6H PRN nausea and 07/14/24 vomiting #20 tabs alprazolam 0.5 mg tablet 0.5 mg PO BEDTIME sleep/anxiety 07/16/24 #30 tabs cyclobenzaprine 5 mg tablet 5 mg PO TID PRN muscle spasm #20 07/16/24 tabs Allergies Allergy/AdvReac Type Severity Reaction Status Date / Time codeine Allergy Unknown Unknown Verified 07/16/24 12:10 Review of Systems 2 Const: Reports: fever(s), fatigue and malaise; Denies: chills Card: Denies: chest pain Resp: Denies: dyspnea GI: Reports: abdominal pain, nausea, diarrhea, bloating and GI cramping : Denies: dysuria, urinary frequency or urinary urgency Musc: Denies: neck pain or back pain Skin/Breast: Denies: rash PFSH ED 2 PFSH: Medical History Chronic constipation Asthmatic bronchitis Anxiety disorder Syncope with abnormal neurologic examination Anxiety about health Family History Other Hyperlipidemia Hypertension Social History Smoking and tobacco/nicotine status: current every day tobacco/nicotine user Alcohol intake: current Alcohol intake frequency: holidays/special occasions only Physical Exam 2 Const: COMMON NORMALS: no acute distress GENERAL APPEARANCE: cooperative and comfortable ORIENTATION/CONSCIOUSNESS: Yes awake, Yes oriented to person, Yes oriented to place and Yes oriented to time HENMT: COMMON NORMALS: normocephalic, atraumatic and hearing grossly normal bilaterally HEAD & SCALP: normocephalic and atraumatic Resp: COMMON NORMALS: normal respiratory effort, No retractions, No use of accessory muscles and clear to auscultation bilaterally AUSCULTATION: clear to auscultation bilaterally Cardio: COMMON NORMALS: regular rate, regular rhythm and No murmurs present (Cardio) RATE: regular rate RHYTHM: regular rhythm GI: COMMON NORMALS: Soft to palpation and No hepatosplenomegaly present A USCULTATION: Yes normoactive bowel sounds PALPATION: Yes Soft to palpation, No Tenderness to palpation present (GI), No Guarding due to palpation present (GI) and Yes No hepatosplenomegaly present Extremity: COMMON NORMALS: normal to inspection, capillary refill normal, no clubbing, cyanosis or edema, no calf tenderness and no pedal edema Neuro: SENSORIUM/ORIENTATION: Yes oriented to person, Yes oriented to place and Yes oriented to time Skin: COMMON NORMALS: no rashes or lesions noted GENERAL SKIN EXAM: no rashes or lesions noted Course 2 Vital Signs: Vital signs: Vital Signs Temperature 98.3 F 07/14/24 10:34 Pulse Rate 72 07/14/24 13:33 Respiratory Rate 16 07/14/24 10:34 Blood Pressure 124/88 07/14/24 13:33 Pulse Oximetry 93 07/14/24 13:33 Oxygen Delivery Me thod Room Air 07/14/24 10:34 MDM - Abdominal Pain Medical Decision Making Labs and imaging reviewed no acute findings. Patient is somewhat improved after IV fluids. No acute appendicitis noted gallbladder and ducts were normal liver function and CBC normal. Clear liquid diet advance as tolerated. If symptoms worsen or change return to the emergency room. Ondansetron given to use as needed Medical Records I reviewed the patient's medical records. Lab Data I reviewed the patient's lab results. 07/14/24 11:00 07/14/24 11:00 Labs/Radiology: Radiology Impressions Abdomen/Pelvis CT 07/14/24 12:24 IMPRESSION: No acute findings. COMMENTS: Consistent with the [employer]'s Incidental Findings Committee white paper (J Am Koffi Radiol 2018): Any incidental renal lesion less than 1 cm or classified as too small to characterize, or any incidental cystic renal lesion characterized as simple-appearing, is likely benign. No follow-up imaging is recommended for these lesions per consensus recommendations based on imaging criteria. Laboratory Results WBC 8.09 10^3/uL (3.29-11.43) 07/14/24 11:00 RBC 4.33 10^6/uL (3.85-5.65) 07/14/24 11:00 Hgb 13.60 g/dL (11.27-16.99) 07/14/24 11:00 Hct 41.1 % (36-47) 07/14/24 11:00 MCV 94.9 fl (85-98) 07/14/24 11:00 MCH 31.4 pg (27-33) 07/14/24 11:00 MCHC 33.1 g/dL (30-55) 07/14/24 11:00 RDW 12.6 % (12.1-15.1) 07/14/24 11:00 Plt Count 250 10^3/cmm (157-399) 07/14/24 11:00 MPV 10.5 fL (7.4-10.4) H 07/14/24 11:00 Neut % (Auto) 65.4 % 07/14/24 11:00 Lymph % (Auto) 28.6 % 07/14/24 11:00 [place] % (Auto) 4.4 % 07/14/24 11:00 Eos % (Auto) 1.2 % 07/14/24 11:00 Baso % (Auto) 0.2 % 07/14/24 11:00 Neut # (Auto) 5.28 10^3/uL (1.8-7.7) 07/14/24 11:00 Lymph # (Auto) 2.3 10^3/uL (0.8-4.8) 07/14/24 11:00 [place] # (Auto) 0.4 10^3/uL (0.2-0.9) 07/14/24 11:00 Eos # (Auto) 0.1 10^3/uL (0.0-0.8) 07/14/24 11:00 Baso # (Auto) 0.0 10^3/uL (0.0-0.1) 07/14/24 11:00 Nucleated RBC % (auto) 0 % 07/14/24 11:00 Nucleated RBCs # 0.0 /100WBC 07/14/24 11:00 Sodium 136 mmol/L (136-145) 07/14/24 11:00 Potassium 3.7 mmol/L (3.5-5.1) 07/14/24 11:00 Chloride 99 mmol/L (98-107) 07/14/24 11:00 Carbon Dioxide 25 mmol/L (22-29) 07/14/24 11:00 Anion Gap 15.7 (5-19) 07/14/24 11:00 BUN 14 mg/dL (6-20) 07/14/24 11:00 Creatinine 0.6 mg/dL (0.5-0.9) 07/14/24 11:00 GFR Calculation 104.6 mL/min (90-130) 07/14/24 11:00 Glucose 104 mg/dL (65-115) 07/14/24 11:00 Calculated Osmolality 283 mOsm/kg (285-295) L 07/14/24 11:00 Lactic Acid 0.7 mmol/L (0.5-2.2) 07/14/24 11:00 Calcium 9.2 mg/dL (8.5-10.5) 07/14/24 11:00 Total Bilirubin 0.7 mg/dL (0.15-1.2) 07/14/24 11:00 AST 20 U/L (0-32) 07/14/24 11:00 ALT 16 U/L (0-33) 07/14/24 11:00 Alkaline Phosphatase 89 U/L (35-105) 07/14/24 11:00 C-Reactive Protein 3.0 mg/L (0.0-4.9) 07/14/24 11:00 Total Protein 7.4 g/dL (6.6-8.7) 07/14/24 11:00 Albumin 4.4 g/dL (3.5-5.2) 07/14/24 11:00 Globulin 3.0 g/dL (1.3-4.6) 07/14/24 11:00 Lipase 23 U/L (13-60) 07/14/24 11:00 HCG, Qual Negative (Negative) 07/14/24 11:00 Urine Color Dark yellow (Yellow) A 07/14/24 12:23 Urine Appearance Clear (CLEAR) 07/14/24 12:23 Urine pH 5.5 (5-7) 07/14/24 12:23 Ur Specific [place] 1.028 (1.005-1.030) 07/14/24 12:23 Urine Protein Trace (Negative) A 07/14/24 12:23 Urine Glucose (UA) Negative (Normal) 07/14/24 12:23 Urine Ketones 2+ (Negative) H 07/14/24 12:23 Urine Blood Negative (Negative) 07/14/24 12:23 Urine Nitrate Negative (Negative) 07/14/24 12:23 Urine Bilirubin Negative (Negative) 07/14/24 12:23 Urine Urobilinogen 1.0 mg/dL (Negative) 07/14/24 12:23 Ur Leukocyte Esterase Negative (Negative) 07/14/24 12:23 Urine RBC 3-5 /hpf (0-2) 07/14/24 12:23 Urine WBC 0-5 /hpf (0-5) 07/14/24 12:23 Ur Squamous Epith Cells 0-5 /hpf (0-5) 07/14/24 12:23 Amorphous Sediment Not Reportable 07/14/24 12:23 Urine Bacteria None seen /hpf (NONE) 07/14/24 12:23 Hyaline Casts 0-4 /lpf H 07/14/24 12:23 Coronavirus (PCR) Negative (Negative) 07/14/24 11:00 Influenza A (PCR) Negative (Negative) 07/14/24 11:00 Influenza Type B (PCR) Negative (Negative) 07/14/24 11:00 RSV (PCR) Negative (Negative) 07/14/24 11:00 All radiology interpretation(s) finalized by discharge Discharge Plan Discharge Patient Disposition: Home Clinical Impression: Abdominal pain Condition: Stable Prescriptions: New ondansetron HCl 4 mg tablet 4 mg PO Q6H PRN (Reason: nausea and vomiting) Qty: 20 0RF No Action polyethylene glycol 3350 [Miralax] 17 gram/dose powder 4 g PO DAILY Qty: 510 1RF cyclobenzaprine 5 mg tablet 5 mg PO TID PRN (Reason: muscle spasm) Qty: 20 0RF alprazolam 0.5 mg tablet 0.5 mg PO BEDTIME Qty: 30 3RF mecobalamin (vitamin B12) 10,000 mcg recon soln 1,000 mcg IM .weekly Qty: 1 0RF Rx Instructions: dose every 2 weekly x 2 then monthly x 5....or more Discharge Orders: Discharge ED (Routine); Ordered 07/14/24 Ordered By: Daniel Agustin Referrals: Mahi yMers MD [Primary Care Provider] - Discharge Diet: Clear Liquid Discharge Activity: Increase activity as tolerated Patient Instructions: Abdominal Pain (ED), Opioid Safety, Pain Management Activity Restrictions/Additional Instructions: Thank you for choosing [facility] for your healthcare needs today. It is very important that you follow up as instructed or that you return to the Emergency Department should you have concerns or if your condition changes or worsens in any way. You were seen in the emergency room with complaint of abdominal pain. Your laboratory test did not show any significant abnormalities urine was also normal CT of your abdomen did not show significant abnormality. We also did a COVID flu and RSV screen on you all of which was also negative today. Suspect you may have some viral gastroenteritis. The pain may be due to some of the problems you have experienced in the past after your previous abdominal surgeries. There is no sign of bowel obstruction at this time. Stand Alone Forms: Work/School Release Coding Level of Care Code ED Car Deliverer for Tayler Negro
[2024-07-14 11:30] LABS: Alanine Aminotransferase 16 U/L (0-33); Albumin Level 4.4 g/dL (3.5-5.2); Alkaline Phosphatase 89 U/L (35-105); Anion Gap 15.7 (5-19); Aspartate Amino Transferase 20 U/L (0-32); Blood Urea Nitrogen 14 mg/dL (6-20); Calcium 9.2 mg/dL (8.5-10.5); Carbon Dioxide 25 mmol/L (22-29); Chloride 99 mmol/L (98-107); Creatinine Clr Calc Pharmacy 86.3647; Glomerular Filtration Rate 104.6 mL/min (90-130); Glucose 104 mg/dL (65-115); Lipase 23 U/L (13-60); Osmolality Calculated 283 mOsm/kg (285-295); Potassium 3.7 mmol/L (3.5-5.1); Sodium 136 mmol/L (136-145); Total Bilirubin 0.7 mg/dL (0.15-1.2); Total Protein 7.4 g/dL (6.6-8.7)
[2024-07-14 11:31] LABS: Lactic Sepsis W/Reflex 0.7 mmol/L (0.5-2.2)
[2024-07-14 11:49] LABS: Covid PCR NEGATIVE (Negative); Influenza A NEGATIVE (Negative); Influenza B NEGATIVE (Negative); Respiratory Syncytial Virus Ce NEGATIVE (Negative)
--- NOTE | 2024-07-14 12:24 | CTR_ITS ---
PROCEDURE INFORMATION: Exam: CT Abdomen And Pelvis With Contrast Exam date and time: 07/14/2024 12:38 PM Age: 53 years old Clinical indication: Abdominal pain; Generalized; Prior surgery; Surgery date: 6+ months; Surgery type: Hyster, adhesions; TECHNIQUE: Imaging protocol: Computed tomography of the abdomen and pelvis with contrast. Radiation optimization: All CT scans at this facility use at least one of these dose optimization techniques: automated exposure control; mA and/or kV adjustment per patient size (includes targeted exams where dose is matched to clinical indication); or iterative reconstruction. Contrast material: OMNIPAQUE 350; Contrast volume: 100 ml; Contrast route: INTRAVENOUS (IV); COMPARISON: US abdomen complete* [id number] 10/14/2022 7:45 AM RADIATION DOSE METRICS: Total DLP (mGy-cm): 314.29 FINDINGS: Liver: Normal. No mass. Gallbladder and biliary ducts: Normal. No calcified stones. No ductal dilation. Pancreas: Normal. No ductal dilation. Spleen: Normal. No splenomegaly. Adrenal glands: Normal. No mass. Kidneys and ureters: Subcentimeter bilateral renal cysts have benign features. Stomach and bowel: Unremarkable. No obstruction. No mucosal thickening. Appendix: A normal appendix is identified. Intraperitoneal space: Unremarkable. No free air. No significant fluid collection. Vasculature: Unremarkable. No abdominal aortic aneurysm. Lymph nodes: Unremarkable. No enlarged lymph nodes. Urinary bladder: Unremarkable as visualized. Reproductive: Unremarkable as visualized. Bones/joints: Unremarkable. No acute fracture. Soft tissues: Unremarkable. CT/CT abdomen pelvis w con* [id number] IMPRESSION: No acute findings. COMMENTS: Consistent with the [employer]'s Incidental Findings Committee white paper (J Am Koffi Radiol 2018): Any incidental renal lesion less than 1 cm or classified as too small to characterize, or any incidental cystic renal lesion characterized as simple-appearing, is likely benign. No follow-up imaging is recommended for these lesions per consensus recommendations based on imaging criteria.
[2024-07-14 12:30] VITALS: BP 115/46
[2024-07-14 12:32] LABS: Bilirubin Urine Negative (Negative); Blood Urine Negative (Negative); Glucose Urine UA Negative (Normal); Ketones Urine 2+ (Negative); Leukocyte Esterase Urine Negative (Negative); Nitrate Urine Negative (Negative); Protein Urine Trace (Negative); Specific Gravity, Urine 1.028 (1.005-1.030); Urine Appearance Clear (CLEAR); Urine Color Dark Yellow (Yellow); pH Urine 5.5 (5-7)
[2024-07-14 12:37] LABS: Bacteria Urine None Seen /hpf; Hyaline Casts Urine 0-4 /lpf; Squamous Epithelial Cell Urine 0-5 /hpf (0-5); WBC Urine 0-5 /hpf (0-5)
[2024-07-14] MEDS: iohexol 350 mg/mL 500 mL Btl (per mL) IV (12:45)
[2024-07-14 13:33] VITALS: BP 124/88; PULSE 72; O2SAT 93
== END 2024-07-14 13:34 | disposition home or self-care (01) ==
PROVIDERS: Emergency Medicine; Emergency Provider Family Medicine; PCP Family Medicine
DX: R10.9 Unspecified abdominal pain (principal); Z72.0 Tobacco use
CPT/HCPCS: 0241U; 74177; 80053; 81001; 83605; 83690; 84703; 85025; 86140; 99284